=== PATIENT | male | born 1950 | race Asian ===

== ENCOUNTER → 2018-07-26 | Outpatient (CLI) | payer MEDICARE, BC ==
--- NOTE | 2018-07-26 17:40 | CONS ---
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 This time I would like to initiate physical therapy and NSAID regimen. He had recent injections and therefore would not be a candidate for injections today. This time his degenerative joint disease and symptoms are not severe enough to warrant a total knee arthroplasty. He does not have mechanical symptoms and a root tear repair will not be recommended in his age group. Plan: Physical therapyfor patella tracking/instability Meloxicam Follow-up 3 months Consultation Date/Type/Reason Admit Date/Time Date of Consultation: Jul 26, 2018 Reason for Consultation Right knee pain Date/Time of Note DATE: 07/26/18 TIME: 17:28 Hx of Present Illness This Is a 67-year-old male with a chief complaint of right knee pain. The pain began approximately 6 months ago. The patients pain is in the anterior and posterior aspect of the right knee. Pain is not radiating to the lower leg. The pain is rated as a 9/10 and is described as sharp and crushing. He does have numbness and tingling. He has history of back pain. The pain is exacerbated by climbing stairs and ambulation. Pain is not relieved by NSAID's. Patient has been taking Aleve on a p.r.n. basis as well as using ice. He has had both hyaluronic acid and steroid injection in the past. This is not helped him significantly. Duration: 6 months Injury: No Walking tolerance: 2 blocks Limp: Yes Support: Cane Swelling: No Crepitation: Yes Instability: No Stairs: Places both feet on one step before proceeding to next Physical Therapy: No Injections: Yes NSAIDs: Aleve as needed Prior surgery: No Back pain: Yes Hip pain: No Risk of AVN : Had prednisone multiple times in the past Patient denies fever, chills, shortness of breath, chest pain, nausea/vomiting, constipation, diarrhea Past Medical History Diabetes Hypertension Varicose veins GERD Gout Eczema Past Surgical History Appendectomy Bunionectomy Vasectomy Family History Significant Family History: no pertinent family hx Social History Alcohol Use: none Smoking Status: Never smoker Drug Use: none Exam/Review of Systems Exam Vitals Weight: 140 pounds Height: 5 foot 7 inches Heart Rate: 95 Blood Pressure: 134/85 Exam General: Alert, oriented x3. No Acute Distress. Heart: Regular rate and rhythm. Lungs: No respiratory distress. No accessory muscle use. Musculoskeletal: Right Knee This is a well developed male who is alert, oriented times three and in no apparent distress. Skin is intact over the right knee as well as the lower extremity with no abrasions, lacerations, or ulcerations. Observation of the patient's gait reveals a non antalgic gait with No thrust. Frontal plane alignment is neutral. There is pain on palpation of medial joint line. The patient demonstrates grinding anteriorly with ROM. Range of motion: 0 extension to approximately 130 degrees of flexion. Collateral ligament testing reveals no instability with varus or valgus stress at 0 and 30 degrees of flexion. Negative Dieter's and negative posterior drawer. Neurovascularly intact with 5/5 EHL/tibialis anterior/gastroc. Sensation intact to light touch in a sural, saphenous, deep peroneal, superficial peroneal, medial and lateral plantar nerve distribution. Palpable, symmetric dorsalis pedis and posterior tibial pulses in both lower extremities. Hip examination normal. Imaging Imaging The patient received a standard set of films today that were personally reviewed. Imaging included a standing bilateral knee AP, PA flexion, merchant views and a dedicated lateral of the affected knee: There is valgus alignment of the knee. There is minimal loss of joint space any compartment(s). Trochlear groove is shallow. There is no osteophyte formation. There is no subchondral sclerosis. There are no subchondral cysts. Degenerative changes are most severe in the medial soraida rtment(s) MRI of the right knee from 07/02/2018 personally reviewed complete tear posterior root medial meniscus with extrusion. High-grade full-thickness cartilage loss patellofemoral and lateral compartments. Shallow trochlea, trochlear dysplasia EWA WALLACE MD Jul 26, 2018 17:38
--- NOTE | 2018-07-27 17:08 | RADRPT ---
PROCEDURE: XR Knees. CLINICAL INDICATION: Bilateral knee pain. TECHNIQUE: Total of eight views. Weightbearing frontal, oblique, and lateral views of the both kne es. Patellar views of both knees. COMPARISON: No prior study is available for comparison. FINDINGS: There is no fracture or dislocation. There is a moderate right knee joint effusion. There is no left knee joint effusion. There are degenerative changes with osteophytes arising from all 3 joint compartment margins bilatera lly. There is no lytic or blastic lesion. There is no radiopaque foreign body. IMPRESSION: 1. Moderate right knee joint effusion. 2. Mild degenerative changes of both knees. 3. Otherwise unremarkable study. RPTAT: QQ .Sandor Bhardwaj MD, MD Date Time Electronically viewed and signed by .Sandor Bhardwaj MD, on 07/27/2018 17:08 .R/
== END | disposition home or self-care (01) ==
LOC: HKI 13:51
PROVIDERS: ATTEND Orthopaedic Surgery Adult Reconstructive Orthopaedic Surgery
DX: S83.241A Other tear of medial meniscus, current injury, right knee, initial encounter (principal); X58.XXXA Exposure to other specified factors, initial encounter; Y92.89 Other specified places as the place of occurrence of the external cause; M17.11 Unilateral primary osteoarthritis, right knee
CPT/HCPCS: 73564; G0463